=== PATIENT | female | born 1965 | race Caucasian/White ===

== ENCOUNTER → 2017-11-13 | Day surgery (SDC) | payer OTHER ==
[~2017-11-13] VITALS: Ht 166.4 cm; Wt 105.4 kg
[~2017-11-13] MED LIST: ASPI-147 PO; CHLORHEXIDINE GLUCONATE 2 % 1 PACK (2 CLOTHS) TOPICAL PRN; DEXAMETHASONE SOD PHOS 4 MG/ML VIAL IV ONE; DO NOT ADM ANY ANTICOAGULANT DRUGS PRN; FISHCAP4 PO; LACTATED RINGER'S 1000 ML IV PRN; LIDOCAINE HCL 1% PF 5 ML SYRINGE OTHER ONE; METOPROLOL TARTRATE 25 MG TAB PO PRN; MIDAZOLAM HCL 2 MG/2 ML VIAL ONE; ONDANSETRON HCL 4 MG/2 ML VIAL IV ONE; ONDANSETRON HCL 4 MG/2 ML VIAL IV PUSH PRN; PERC5TAB12 PO; POVIDONE IODINE 5% (ANTISEPSIS KIT) 4 APPLICATIONS EACH NARE PRN; PROPOFOL 200 MG/20 ML AMP IV ONE; SIMV40TA PO; SODIUM CHLORID 0.9% 500 ML IV PRN; THERH PO; ePHEDrine/NS 25 MG/5 ML SYRINGE IV ONE; oxyCODONE/ACETAMINOPHEN 5 MG/325 MG TAB PO PRN
[2017-11-13 08:29] LABS: AUTOMATED NEUTROPHIL # 6.6 TH/MM3 (1.8-7.7); BASOPHIL # 0.1 TH/MM3 (0-0.2); BASOPHIL % 0.5 % (0.0-2.0); EOSINOPHIL # 0.3 TH/MM3 (0-0.4); EOSINOPHIL % 3.2 % (0.0-4.0); HEMATOCRIT 40.6 % (35.0-46.0); HEMOGLOBIN 13.5 GM/DL (11.6-15.3); LYMPH % 22.5 % (9.0-44.0); LYMPHOCYTE # 2.2 TH/MM3 (1.0-4.8); MEAN CELL VOLUME 89.4 FL (80.0-100.0); MEAN CORPUSCULAR HEMOGLOBIN 29.8 PG (27.0-34.0); MEAN CORPUSCULAR HGB CONC 33.4 % (32.0-36.0); MEAN PLATELET VOLUME 7.7 FL (7.0-11.0); MONO % 4.9 % (0.0-8.0); MONOCYTE # 0.5 TH/MM3 (0-0.9); NEUT % 68.9 % (16.0-70.0); PLATELET COUNT 213 TH/MM3 (150-450); RED BLOOD COUNT 4.54 MIL/MM3 (4.00-5.30); RED CELL DISTRIBUTION WIDTH 13.5 % (11.6-17.2); WHITE BLOOD COUNT 9.6 TH/MM3 (4.0-11.0)
--- NOTE | 2017-11-13 09:14 | RADRPT ---
EXAM DATE/TIME: 11/13/2017 07:50 [place] COMPARISON: None. INDICATIONS : <<Evaluate for pneumonia, pneumothorax, or communicable disease. Pre-op lithotripsy right side kidney stones.>> MEDICAL HISTORY : Renal calculi. SURGICAL HISTORY : section. Appendectomy. Cholecystectomy. Nephrectomy, left. Right nephrostomy tube. Double fe mpop bypass. ENCOUNTER: Initial ACUITY: 1 day PAIN SCORE: 0/10 LOCATION: abdomen FINDINGS: Supine view of the abdomen was performed. Previous nephrostomy has been removed. Bowel gas pattern un remarkable without evidence for obstruction or free air. Previous hernia repair. Degenerative changes in the spine. CONCLUSION: 1. No acute findings. Previous ventral hernia repair. Bowel gas pattern nonspecific without evidence for obstruction. Rick Head MD on November 13, 2017 at 9:07 Board Certified Radiologist. This report was verified electronically.
--- NOTE | 2017-11-13 12:14 | PD.OP ---
Operative Report Date of Surgery: Nov 13, 2017 Preoperative Diagnosis: (1) Renal calculus, right Postoperative Diagnosis: (1) Ureteral calculus, right (2) Renal calculus, right Procedure: Extracorporeal shockwave lithotripsy of right renal and proximal ureteral calculi Anesthesia: General Surgeon: Lalito Yuen Dehydrator Operator(s): None Operation and Findings: Indication for procedures: Case of a pleasant 52-year-old female with a large right renal calculus measuring greater than 1.5 cm who presents today to undergo shockwave lithotripsy. Operative procedure in detail: Patient was brought to the operating room suite and placed supine on the lithotripsy table. She was then placed under general anesthesia. The right renal calculus did not show up clearly either on today's KUB study which was somewhat underpenetrated nor was it seen well under fluoroscopy. The stone was able to be seen with the use of ultrasound. Also noted was a smaller perhaps 3-4 mm right proximal stone which was seen under fluoroscopy. I proceeded with extracorporeal shockwave lithotripsy utilizing the Dornier mobile lithotripsy device as follows. The right renal calculus was localized with ultrasound and I proceeded with 1500 shocks with a maximum power level setting of 6. I then proceeded to localize the patient's right proximal ureteral calculus with fluoroscopy and an additional 1500 shocks with a maximum power setting of 6 was delivered. The ureteral stone did appear somewhat full stack developer in intensity at the conclusion of the procedure. The patient tolerated the procedure without complications and was transferred to the PACU in satisfactory condition. Lalito Yuen MD Nov 13, 2017 12:14
[2017-11-13 13:37] VITALS: BP 130/73; PULSE 64; RESP 18; TEMP 97.9; O2SAT 100
--- NOTE | 2017-11-13 23:01 | EKG ---
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
== END | disposition home or self-care (01) ==
LOC: HSDC 07:24
PROVIDERS: ATTEND Urology
DX: N20.2 Calculus of kidney with calculus of ureter (principal); R94.31 Abnormal electrocardiogram [ECG] [EKG]
CPT/HCPCS: 00873; 50590; 74018; 85025; 93005; J1100; J2250; J2405; J3010; J7120

== ENCOUNTER → 2017-12-13 | Day surgery (SDC) | payer OTHER ==
[~2017-12-13] VITALS: Ht 167.6 cm; Wt 106.6 kg
[~2017-12-13] MED LIST changes: +*morphine SULFATE 4 MG/ML PERIprocedure ONLY ONE; +ACETAMINOPHEN 500 MG CPLT ONE; +ACETAMINOPHEN 500 MG CPLT PO ONE; +CEPH-459 PO; -LIDOCAINE HCL 1% PF 5 ML SYRINGE OTHER ONE; -MIDAZOLAM HCL 2 MG/2 ML VIAL ONE; +STERILE WATER FOR INJECTION 20 ML VIAL IV ONE; +ceFAZolin INJ 1,000 MG VIAL IV ONE; -ePHEDrine/NS 25 MG/5 ML SYRINGE IV ONE
[2017-12-13 09:06] LABS: BASOPHIL # 0.1 TH/MM3 (0-0.2); BASOPHIL % 0.9 % (0.0-2.0); EOSINOPHIL # 0.3 TH/MM3 (0-0.4); HEMATOCRIT 40.6 % (35.0-46.0); HEMOGLOBIN 13.6 GM/DL (11.6-15.3); LYMPH % 25.7 % (9.0-44.0); LYMPHOCYTE # 2.4 TH/MM3 (1.0-4.8); MEAN CELL VOLUME 89.5 FL (80.0-100.0); MEAN CORPUSCULAR HEMOGLOBIN 29.9 PG (27.0-34.0); MEAN CORPUSCULAR HGB CONC 33.4 % (32.0-36.0); MEAN PLATELET VOLUME 8.1 FL (7.0-11.0); MONO % 4.9 % (0.0-8.0); MONOCYTE # 0.4 TH/MM3 (0-0.9); NEUT % 65.5 % (16.0-70.0); PLATELET COUNT 228 TH/MM3 (150-450); RED BLOOD COUNT 4.54 MIL/MM3 (4.00-5.30); RED CELL DISTRIBUTION WIDTH 13.8 % (11.6-17.2); WHITE BLOOD COUNT 9.2 TH/MM3 (4.0-11.0)
--- NOTE | 2017-12-13 12:03 | PD.OP ---
Operative Report Date of Surgery: Dec 13, 2017 Preoperative Diagnosis: (1) Ureteral calculus, right Postoperative Diagnosis: (1) Ureteral calculus, right Procedure: Cystoscopy, right retrograde pyelogram, right ureteroscopy with laser lithotripsy and right ureteral catheter placement. Anesthesia: General Surgeon: Lalito Yuen Customs Broker(s): None Operation and Findings: Indication for procedures: Case of a pleasant 52-year-old female with a history of a solitary right kidney since who is status post recent shockwave lithotripsy of a 1.5 cm right renal calculus. A follow-up CT scan demonstrated the stone migrating skilled nursing down the right ureter now measuring 1.3 cm. Patient presents today for further management to include right ureteroscopy with laser lithotripsy. Operative procedure in detail: Patient was brought to the operating room suite placed supine on the OR table. She was then placed under general anesthesia. She was then repositioned in the dorsal lithotomy position and prepped and draped in normal sterile fashion. After appropriate timeout was undertaken I proceeded with cystoscopic evaluation utilizing the rigid cystoscope with the 20 Vincentian sheath and 30 lens. The right ureteral orifice was identified and there was sluggish drainage of urine noted. I then proceeded to pass a sensor 0.035 wire up the right ureter around the stone and further advance the wire into the right renal pelvis. The cystoscope was then withdrawn and the wire secured to a sterile drape with a hemostat. The self dilating ureteroscope was then advanced alongside this previously placed wire with a second wire in the lumen to facilitate scope passage. The scope was easily advanced up to the point of the obstructing right ureteral calculus. The intraluminal wire was then exchanged for a 200 m holmium laser fiber and the stone was broken up under direct vision into multiple small fragments. Subsequent to this the holmium fiber was exchanged for a 2.5 Vincentian stone basket and several of the larger stone fragments were retrieved under direct vision and sent off for chemical analysis. Repeat ureteroscopy failed to demonstrate any significant size stone fragments remaining. The ureteroscope was withdrawn and the cystoscope was reintroduced with the remaining guidewire backloaded. A 6 Vincentian open-ended ureteral catheter was then advanced over this wire and a right retrograde pyelogram study was performed to outline the collecting system. A 16 Vincentian 10 cc Smith catheter was placed and the open-ended ureteral catheter was anchored to the Smith via a connector. Both catheters were then placed to gravity drainage. The patient tolerated the procedures without complications and was transferred to the PACU in satisfactory condition. Lalito Yuen MD Dec 13, 2017 12:03
[2017-12-13 13:10] VITALS: BP 153/86; PULSE 65; RESP 20; TEMP 97.9; O2SAT 99
== END | disposition home or self-care (01) ==
LOC: HSDC 07:57
PROVIDERS: ATTEND Urology
DX: N20.1 Calculus of ureter (principal); E78.00 Pure hypercholesterolemia, unspecified; Z87.891 Personal history of nicotine dependence; Z01.818 Encounter for other preprocedural examination
CPT/HCPCS: 00918; 52356; 74420; 82365; 82370; 85025; 88300; C1726; C1769; J0690; J1100; J2270; J2405; J7120